=== PATIENT | male | born 1985 | race African-American/Black ===

== ENCOUNTER 2018-02-01 19:09 | Emergency (ER) | payer OTHER ==
[~2018-02-01] VITALS: Ht 172.7 cm; Wt 83.5 kg
--- NOTE | ~2018-02-01 | EKG ---
[address] [address] ELECTROCARDIOGRAM REPORT Name: BERE THORNTON Room #: [id number] Admission: 02/01/18 Attend Phys: Discharge: 02/01/18 Date of : 83 Report #: [id number] THIS REPORT FOR: //name// [facility] ED Test Date: 2018-02-01 Test Time: 19:25:48 Pat Name: BERE THORNTON Department: Room: Gender: M [employer]: Colt ETIENNE : 1985 Requested By: Moo Agudelo Order Number: [id number] MD: Quan Dang Measurements Intervals [place] Rate: 65 P: 53 AK: 166 QRS: 56 QRSD: 91 T: 34 QT: 384 QTc: 400 Interpretive Statements Sinus rhythm ST elevation suggests acute pericarditis No previous ECG available for comparison Electronically Signed On 02-02-2018 19:49:12 CDT by Quan Dang [email or web address] <ELECTRONICALLY SIGNED> By: Quan Dang MD 02/02/18 194 24 24 Quan Dang MD /EMILIANO
[~2018-02-01 19:09] MED LIST: TOBRAMYCIN SULFA5 ML OP; VENTOLIN HFA 1818 GM INH
[2018-02-01 19:59] LABS: ABSOLUTE NEUTROPHILS 8.4 thou/uL (1.4-8.2); BASOPHILS 0.4 % (0.0-2.0); EOSINOPHILS 0.8 % (0.0-3.0); HEMATOCRIT 45.5 % (42.0-52.0); HEMOGLOBIN 15.6 gm/dL (14.0-18.0); LYMPHOCYTES 16.4 % (24.0-44.0); MCH 31.6 pg (26.0-34.0); MCHC 34.3 g/dL (28.0-37.0); MCV 92.2 fL (80.0-100.0); MONOCYTES 8.6 % (1.0-8.0); PLATELET COUNT 259 thou/uL (150-400); POLYS 73.8 % (36.0-66.0); RBC 4.94 mil/uL (4.50-6.00); RDW 12.8 % (10.5-14.5); WBC 11.3 thou/uL (4.0-11.0)
[2018-02-01 20:07] LABS: ANION GAP 11 mmol/L (7-16); BUN 10 mg/dL (7-18); CALCIUM 9.6 mg/dL (8.5-10.1); CHLORIDE 103 mmol/L (98-107); CO2 25 mmol/L (21-32); CREATININE 1.3 mg/dL (0.7-1.3); GLUCOSE 123 mg/dL (74-106); POTASSIUM 3.7 mmol/L (3.5-5.1); SODIUM 139 mmol/L (136-145)
[2018-02-01 20:15] LABS: ALBUMIN 4.3 g/dL (3.4-5.0); SGOT 18 U/L (15-37); SGPT 23 U/L (30-65); TOTAL BILIRUBIN 0.6 mg/dL (<0.1-1.0); TOTAL PROTEIN 7.5 g/dL (6.4-8.2); TROPONIN-I < 0.04 ng/mL (<0.06)
[2018-02-01] MEDS ORDERED: IBUPROFEN 600600 M1 PO (20:17)
[2018-02-01] MEDS ORDERED: COLCHICINE0.6 MG PO (20:17)
[2018-02-01 20:30] VITALS: BP 117/71
== END 2018-02-01 20:31 | disposition home or self-care (01) ==
LOC: ER 19:09
PROVIDERS: Emergency Medicine
DX: I31.9 Disease of pericardium, unspecified (principal); J45.909 Unspecified asthma, uncomplicated

== ENCOUNTER 2018-07-13 10:35 | Emergency (ER) | payer OTHER ==
[~2018-07-13] VITALS: Ht 172.7 cm; Wt 83.9 kg
[~2018-07-13 10:35] MED LIST changes: +COLCHICINE0.6 MG PO; +IBUPROFEN 600600 M1 PO
[2018-07-13] MEDS ORDERED: FLEXERIL PO (10:55)
== END 2018-07-13 11:06 | disposition home or self-care (01) ==
LOC: ER 10:35
DX: M62.830 Muscle spasm of back (principal); J45.909 Unspecified asthma, uncomplicated

== ENCOUNTER 2021-09-20 08:15 | Emergency (ER) | payer OTHER ==
[~2021-09-20] VITALS: Ht 172.7 cm; Wt 83.9 kg
[2021-09-20 08:15] VITALS: BP 125/73
[~2021-09-20 08:15] MED LIST changes: +FLEXERIL PO
[2021-09-20] MEDS ORDERED: MOBIC7.5 MG PO (08:43)
[2021-09-20] MEDS ORDERED: MEDROLDOSEPACK PO (08:43)
== END 2021-09-20 08:51 | disposition home or self-care (01) ==
LOC: ER 08:15
DX: M54.50 Low back pain, unspecified (principal); J45.909 Unspecified asthma, uncomplicated